=== PATIENT | male | born 1955 | race Caucasian/White ===

== ENCOUNTER 2017-09-07 10:52 | Outpatient (CLI) | payer OTHER ==
[~2017-09-07] VITALS: Ht 188 cm; Wt 126.4 kg
--- NOTE | ~2017-09-07 | HEMODYNAMI ---
PATIENT:RONNELL ANDERSON MEDICAL RECORD: [id number] : 57 LOCATION:[facility] ADMISSION DATE: 09/07/17 Generatedon:09/07/201713:18 Patient name: RONNELL ANDERSON Patient #: [id number] SSN: : 1955 Date of study: 09/07/2017 Page: Of Hemodynamic Procedure Report Patient Data Patient Demographics Procedure consent was obtained First Name: RONNELL Gender: Male Last Name: JUSTIN : 1955 Middle Initial: M Age: 62 year(s) Patient #: [id number] Race: Unknown Additional ID: [id number] Contact details [address]: [address] [place] [address] State: [place] City: [place] Zip code: [address] Past Medical History Allergies Allergen Reaction Date Comments Reported Penicillins 09/07/2017 Admission Admission Data Admission Date: 09/07/2017 Admission Time: 10:52 Height (in.): 6.2 BSA: 0.42 (m2) Height (cm.): 15.75 BMI: 5267.53 (kg/m2) Weight (lbs.): 288 Weight (kg.): 130.63 Lab Results Lab Result Date: 09/07/2017 Lab Result Time: 0:00 Biochemistry Name Units Result Min Max BUN mg/dl 20 --(----)*- 7 18 Creatinine mg/dl 1.1 --(--*-)-- 0.6 1.3 CBC Name Units Result Min Max Hemoglobin g/dl 14.8 --(-*--)-- 13.5 17.5 Procedure Procedure Types Cath Procedure Diagnostic Procedure Cardioversion External Procedure Description Procedure Date Procedure Date: 09/07/2017 Procedure Start Time: 13:06 Procedure End Time: 13:18 Procedure Staff Name Function Ady Sebastian MD Performing Physician Khadijah Causey RT Monitor Noah Mcgill RN Nurse Kiesha Metcalf CRNA Additional personnel Procedure Data Procedure Complications No complications Hemodynamics Rest BSA: 0.42 (m2) HGB: 14.8 (g/dl) O2 Consumption: Estimated: 50.57 (ml/min) O2 Consumption indexed: Estimated:120.4 (ml/min/m) Heart Rate: 78 (bpm) Snapshots Pre Cath Intra NCS Post Cath Vital Signs Time Heart Resp SPO2 etCO2 NIBP (mmHg) Rhythm Pain Sedation Rate (ipm) (%) (mmHg) Status Level (bpm) 12:56:17 64 4 99 0 No Cuff NSR 0 (11) 10(A) , No pain 13:01:02 68 11 99 19.3 144/92(113) NSR 0 (11) 10(A) , No pain 13:05:47 59 22 100 18.5 148/89(103) NSR 0 (11) 10(A) , No pain 13:10:46 58 10 95 0 Measuring NSR 0 (11) 10(A) , No pain 13:11:15 67 15 95 30.4 123/89(111) NSR 0 (11) 10(A) , No pain 13:16:14 60 5 99 32.6 Measuring NSR 0 (11) 10(A) , No pain 13:17:05 59 13 99 16.3 125/56(82) NSR 0 (11) 10(A) , No pain Procedure Log Time Note 12:38:48 Time tracking: Regular hours 12:38:52 Plan of Care:Hemodynamics will remain stable., Cardiac rhythm will remain stable., Comfort level will be maintained., Respiratory function will remain adequate., Patient/ family verbilizes understanding of procedure., Procedure tolerated without complication., Recovers from procedure without complications.. 12:38:55 Signed procedure consent form obtained from patient. 12:41:38 Patient Height : 6.2 inches 12:41:45 Patient Weight : 288 lbs 12:42:49 Patient allergic to Penicillins 12:43:16 Khadijah Causey RT(R) sent for patient. Start room use. 12:49:22 Patient received from Pre/Post Procedure Room to CCL 1 Alert and oriented. Tansferred to table in Supine position. 12:49:23 Warm blankets applied, and david hugger turned on for patient comfort. 12:49:24 Correct patient and procedure confirmed by team. 12:49:24 ECG and BP/O2 sat monitors applied to patient. 12:55:28 Vital chart was started 12:55:30 Baseline sample Acquired. 12:55:43 Rhythm: atrial fibrillation 12:55:44 Full Disclosure recording started 12:55:58 H&P Date Dictated: 09/01/2017 Within 30 days and on chart., H&P Addendum completed by physician on day of procedure. (MUST COMPLETE FOR ALL OUTPATIENTS). 12:55:59 Pre-procedure instructions explained to patient. 12:56:00 Pre-op teaching completed and patient verbalized understanding. 12:56:01 Family in patients room. 12:56:02 Patient NPO since Midnight. 12:56:05 Is the patient allergic to Iodine/contrast media? No. 12:56:08 Is patient on blood thinner?Yes 12:56:13 ACC The patient was administered the following blood thiners within the last 24 hours: Xarelto 12:56:15 Patient diabetic? Yes. 12:56:16 If diabetic: On Metformin? No 12:56:22 Previous problem with sedation/anesthesia? No ? 12:56:22 Snore? Yes 12:56:24 Sleep apnea? Yes 12:56:25 Deviated septum? No 12:56:28 Opens mouth fully? Yes 12:56:54 Sticks out tongue? Yes 12:56:57 Airway obstruction? No ? 12:57:00 Dentures? No ? 12:57:13 IV patent on arrival in left antecubital with 0.9% NaCl at [facility]. 12:59:26 Lab Result : BUN 20 mg/dl 12:59:26 Lab Result : Hemoglobin 14.8 g/dl 12:59:26 Lab Result : Creatinine 1.1 mg/dl 12:59:29 Lab results completed and on chart. 12:59:33 Alarms reviewed by R. N. 12:59:33 Sharps counted by scrub and verified by R.N. 13:03:37 Quick Combo opened to sterile field. 13:03:44 Kiesha Metcafl CRNA present and monitoring patient for TIVA. 13:05:57 --------ALL STOP TIME OUT------ 13:05:57 Final Timeout: patient, procedure, and site verified with staff and physician. All members of the team are in agreement. 13:06:02 Physical assessment completed. ASA score P 2 - A patient with mild systemic disease as per Ady Sebastian MD. 13:06:07 Sedation plan: TIVA Medication:Propofol 13:06:34 Procedure started. 13:06:41 Quick combo pads placed on patients chest and back. 13:08:27 Defibrillator synced and charged to 200 Joules. 13:09:12 Shock delivered. 13:09:38 Patient cardioverted to sinus rhythm . 13:09:45 Procedure ended.(Physican Out) 13:11:58 Post-procedure physical assessment completed. ASA score P 2 - A patient with mild systemic disease as per Ady Sebastian MD. 13:12:01 Post procedure rhythm: sinus rhythm 13:12:09 Post procedure instruction explained to patient.Patient verbalizes understanding. 13:12:09 Patient needs reinforcement of post procedure teaching. 13:12:58 Procedure and supply charges have been captured, reviewed, submitted and are correct. 13:13:00 Procedure Complication : No complications 13:18:02 Vital chart was stopped 13:18:02 See physician's report for complete and final results. 13:18:04 Report given to Pre/Post Procedure Room. 13:18:07 Patient transfered to Pre/Post Procedure Room with Bed. 13:18:09 Procedure ended. 13:18:09 Full Disclosure recording stopped 13:18:13 End room use (Document Last) Device Usage Item Manufacture Quantity Catalog Hospital Part Current Minimal Lot# / Name Number Charge Number Stock [facility] Ning ok# Code Guesty 1 [id number] Combo Signature Audit Monette Stage Time Signature Unsigned Intra-Procedure 09/07/2017 Khadijah Causey 1:18:45 PM RT(R) Signatures Monitor : Khadijah Causey Signature : RT Date : Time : [facility] [address] [place] [id number]
[2017-09-07] MEDS ORDERED: CRESTOR5 MG PO (11:22)
[2017-09-07] MEDS ORDERED: COZAAR25 MG PO (11:22)
[2017-09-07] MEDS ORDERED: BETAPACE 80 MG80 MG PO (11:23)
[2017-09-07] MEDS ORDERED: TRIAMTERENE-HCT1 TA1 PO (11:23)
[2017-09-07] MEDS ORDERED: XARELTO20 MG PO (11:24)
[2017-09-07 11:29] VITALS: BP 134/87; Ht 188 cm; Wt 126.4 kg
[2017-09-07 11:43] LABS: BASOPHILS 0.5 % (0-2); EOSINOPHILS 2.3 % (0-7); HEMATOCRIT 43.1 % (42.0-54.0); HEMOGLOBIN 14.8 g/dL (13.5-17.5); IMMATURE GRANULOCYTES 0.4 % (0-5); LYMPHOCYTES 26.5 % (15-50); MCH 29.1 pg (26.0-34.0); MCHC 34.3 g/dL (31.0-37.0); MCV 84.8 fL (80.0-100.0); MEAN PLATELET VOLUME 10.8 fL (7.4-10.4); MONOCYTES 8.9 % (2-11); NEUTROPHILS 61.4 % (40-80); PLATELET COUNT 228 10x3/uL (130-400); RBC 5.08 10x6/uL (4.20-6.10); RDW 13.7 % (11.5-14.5); WBC 9.2 10x3/uL (4.8-10.8)
[2017-09-07 11:58] LABS: INR 1.35 (0.85-1.17); PROTIME 16.2 SECONDS (11.6-15.0)
[2017-09-07 12:05] LABS: CALCIUM 8.7 mg/dL (8.5-10.1); CREATININE - SERUM 1.1 mg/dL (0.6-1.3)
== END 2017-09-07 14:45 | disposition home or self-care (01) ==
LOC: D.CATH 10:52
PROVIDERS: Internal Medicine Cardiovascular Disease
DX: I48.91 Unspecified atrial fibrillation (principal); I10 Essential (primary) hypertension; E11.9 Type 2 diabetes mellitus without complications; G47.30 Sleep apnea, unspecified; Z01.812 Encounter for preprocedural laboratory examination

== ENCOUNTER → 2018-10-25 11:27 | Outpatient (CLI) | payer OTHER ==
[2017-09-07 11:29] VITALS: BMI 35.7
[~2018-10-25 11:27] MED LIST: BETAPACE 80 MG80 MG PO; COZAAR25 MG PO; CRESTOR5 MG PO; TRIAMTERENE-HCT1 TA1 PO; XARELTO20 MG PO
== END | disposition home or self-care (01) ==
LOC: D.HCCARDIO 11:27
PROVIDERS: ATTEND Internal Medicine Cardiovascular Disease
DX: I10 Essential (primary) hypertension (principal)

== ENCOUNTER 2019-09-20 06:43 | Outpatient (CLI) | payer BC ==
[~2019-09-20] VITALS: Ht 188 cm; Wt 128.2 kg
--- NOTE | ~2019-09-20 | HEMODYNAMI ---
PATIENT:RONNELL ANDERSON MEDICAL RECORD: [id number] : 57 LOCATION:[facility] ADMISSION DATE: 09/20/19 Generatedon:09/20/20199:09 Patient name: RONNELL ANDERSON Patient #: [id number] SSN: [id number] : 1955 Date of study: 09/20/2019 Page: Of Hemodynamic Procedure Report Patient Data Patient Demographics Procedure consent was obtained First Name: RONNELL Gender: Male Last Name: JUSTIN : 1955 Middle Initial: M Age: 64 year(s) Patient #: [id number] Race: SSN: [id number] Additional ID: [id number] Contact details [address]: [address] [place] [address] State: [place] City: [place] Zip code: [address] Past Medical History Allergies Allergen Reaction Date Comments Reported Penicillins 09/07/2017 Other allergy 09/20/2019 PENICILLINS Admission Admission Data Admission Date: 09/20/2019 Admission Time: 6:43 Lab Results Lab Result Date: 09/20/2019 Lab Result Time: 0:00 Biochemistry Name Units Result Min Max BUN mg/dl 18 --(---*)-- 7 18 Creatinine mg/dl 0.9 --(-*--)-- 0.6 1.3 CBC Name Units Result Min Max Hematocrit % 42.8 --(*---)-- 42 54 Hemoglobin g/dl 14.2 --(*---)-- 13.5 17.5 Procedure Procedure Types Cath Procedure Diagnostic Procedure PPM/ICD PPM Dual Implant Sedation Charges Moderate Sedation up to 30 minutes Procedure Description Procedure Date Procedure Date: 09/20/2019 Procedure Start Time: 8:37 Procedure End Time: 9:07 Procedure Staff Name Function Prabhjot Ko MD Performing Physician Palmer Blackmon MD Assisting physician Marina Pride RT Monitor Sue Pagan RT Scrub Nicolle Pantoja RN Nurse Indication Paroxysmal atrial fibrillation Procedure Data Cath Procedure Fluoroscopy Diagnostic fluoroscopy Total fluoroscopy Time: 1.8 time: 1.8 min min Diagnostic fluoroscopy Total fluoroscopy dose: dose: 90.23 mGy 90.23 mGy Estimated blood loss: 10 ml Procedure Complications No complications Procedure Medications Medication Administration Route Dosage 0.9% NaCl I.V. 100 ml/hr Oxygen etCO2 Nasal cannula 2 l/min Lidocaine 1% added to field 20 Vancomycin I.V.P.B 1 g Vancomycin Topical 1 g Irrigation Versed I.V. 2 mg Fentanyl I.V. 50 mcg Versed I.V. 2 mg Fentanyl I.V. 50 mcg Fentanyl I.V. 50 mcg Hemodynamics Rest HGB: 14.2 (g/dl) Heart Rate: 60 (bpm) Snapshots Pre Cath Intra NCS Post Cath Vital Signs Time Heart Resp SPO2 etCO2 NIBP (mmHg) Rhythm Pain Sedation Rate (ipm) (%) (mmHg) Status Level (bpm) 8:10:45 50 18 98 33 147/82(128) A-Flutter 0 (11) 10(A) , No pain 8:15:01 65 16 98 28.6 157/89(121) A-Flutter 0 (11) 10(A) , No pain 8:19:11 61 12 98 33.9 143/92(114) A-Flutter 0 (11) 10(A) , No pain 8:23:27 60 11 96 40 148/82(134) A-Flutter 0 (11) 10(A) , No pain 8:27:41 69 19 98 28.6 143/92(123) A-Flutter 0 (11) 10(A) , No pain 8:31:55 61 14 97 42 146/87(116) A-Flutter 0 (11) 10(A) , No pain 8:36:15 45 16 96 38 136/74(125) A-Flutter 0 (11) 10(A) , No pain 8:40:27 60 24 96 38.5 141/86(131) A-Flutter 0 (11) 10(A) , No pain 8:44:43 49 14 98 35.4 125/82(110) A-Flutter 0 (11) 10(A) , No pain 8:48:53 58 16 98 31.7 132/79(105) A-Flutter 0 (11) 10(A) , No pain 8:53:05 46 15 96 31.7 133/79(119) A-Flutter 0 (11) 10(A) , No pain 8:57:15 69 18 97 36.2 137/87(111) Paced 0 (11) 10(A) , No pain 9:01:29 60 14 95 39.2 127/86(116) Paced 0 (11) 10(A) , No pain 9:05:38 62 9 96 35.4 137/83(103) Paced 0 (11) 10(A) , No pain Medications Time Medication Route Dose Verified Delivered Reason Notes Effectiv eness by by 8:18:20 0.9% NaCl I.V. 100 Prabhjot Nicolle used for ml/hr Stefani Kit procedure RN 8:18:27 Oxygen etCO2 2 Prabhjot Nicolle used for Nasal l/min StefaniEber Pantoja procedure cannula MD FLOYD 8:18:39 Lidocaine added 20ml Palmer Babbian for local 1% to vial Flaquito Blackmon MD anesthetic field x 2 8:18:46 Vancomycin I.V.P.B 1 g Sabianism Sabianism used for Flaquito Blackmon MD procedure 8:18:55 Vancomycin Topical 1 g Sabianism Sabianism used for Irrigation Flaquito Blackmon MD procedure 8:33:00 Versed I.V. 2 mg Prabhjot Nicolle for StefaniEber Pantoja sedation RN 8:33:12 Fentanyl I.V. [address] Nicolle for mcg [address] Eber Pantoja sedation RN 8:38:39 Versed I.V. 2 mg Prabhjot Nicolle for StefaniEber Pantoja sedation RN 8:38:45 Fentanyl I.V. 50 Prabhjot Nicolle for mcg StefaniEber Pantoja sedation RN 8:45:03 Fentanyl I.V. 50 Prabhjot Nicolle for mcg StefaniEber Pantoja sedation supervisor stave finishing Log Time Note 7:55:45 Informed consent obtained and on chart 7:57:24 Indication : Paroxysmal atrial fibrillation 7:57:50 Procedure Status PPM/ Gen Change/ Lead Revision/ Temp. 7:57:55 Sue NOLAND(R) sent for patient. Start room use. 7:57:58 Time tracking: Regular hours (M-F 7:00 - 5:00) 7:58:07 Plan of Care:Hemodynamics will remain stable., Cardiac rhythm will remain stable., Comfort level will be maintained., Respiratory function will remain adequate., Patient/ family verbilizes understanding of procedure., Procedure tolerated without complication., Recovers from procedure without complications.. 8:01:32 Patient allergic to Other allergyPENICILLINS 8:01:53 Patient received from Pre/Post Procedure Room to CCL 3 Alert and oriented. Tansferred to table in Supine position. 8:02:29 Lab Result : Hemoglobin 14.2 g/dl 8:: Lab Result : Hematocrit 42.8 % 8:: Lab Result : BUN 18 mg/dl 8:: Lab Result : Creatinine 0.9 mg/dl 8:02:33 Warm blankets applied, and david hugger turned on for patient comfort. 8:02:34 Correct patient and procedure confirmed by team. 8:02:35 ECG and BP/O2 sat monitors applied to patient. 8:08:08 H&P Date Dictated: 09/20/2019 H&P Addendum completed by physician on day of procedure. (MUST COMPLETE FOR ALL OUTPATIENTS), New H&P dictated by physician.. 8:08:10 Pre-procedure instructions explained to patient. 8:08:11 Pre-op teaching completed and patient verbalized understanding. 8:08:14 Family unavailable. 8:08:17 Patient NPO since Midnight. 8:08:20 Is the patient allergic to Iodine/contrast media? No. 8:08:23 Was the patient premedicated? Yes 8:08:50 Is patient on blood thinner?Yes 8:08:56 ACC The patient was administered the following blood thiners within the last 24 hours: Xarelto 8:09:30 LAST ZARELTO 09-18-2019. 8:09:35 Patient diabetic? Yes. 8:09:37 If diabetic: On Metformin? No 8:09:43 Vital chart was started 8:09:46 Baseline sample Acquired. 8:10:19 Rhythm: atrial fibrillation 8:10:22 Full Disclosure recording started 8:10:22 8:10:30 ----Pre-sedation anethsthesia assessment.---- 8:10:34 Previous problem with sedation/anesthesia? No ? 8:10:36 Snore? Yes 8:10:39 Sleep apnea? Yes 8:10:42 Deviated septum? No 8:10:45 Opens mouth fully? Yes 8:10:47 Sticks out tongue? Yes 8:11:04 Airway obstruction? Yes SLEEP APNEA/WEARS CPAP 8:11:09 Dentures? No ? 8:11:27 IV patent on arrival in left forearm with 0.9% NaCl at [facility]. 8:11:34 Lab results completed and on chart. 8:11:48 Left chest area was prepped with chlora-prep and draped in sterile fashion 8:11:51 Alarms reviewed by R. N. 8:11:52 Sharps counted by scrub and verified by R.N. 8:12:07 Use device set FLAQUITO PPM 8:12:10 2-0 Ticron Multipack ([id number]) opened to sterile field. 8:12:10 3-0 Vicryl Single Pack [id number] opened to sterile field. 8:12:11 5-0 Monocryl PS2 [id number] opened to sterile field. 8:12:12 Cautery Tip Business Operations Manager opened to sterile field. 8:12:13 Cautery Pushbutton Pencil opened to sterile field. 8:12:14 Mepilex Dressing ([id number]) opened to sterile field. 8:12:40 Medtronic sales representative girls' apparel LEIGH ANN LOPEZ present for procedure. 8:13:08 Pre sharps counted by scrub and verified by RN: Sutures: 7; Sponges: 5; Stick needles: 2; Skin needles: 2; Blade: 1; Cautery: 1 8:13:20 Grounding pad site Left thigh. 8:13:21 Grounding pad site free from injury. 8:18:20 0.9% NaCl 100 ml/hr I.V. was administered by Nicolle Pantoja RN; used for procedure; Verbal order read back and verified. 8:18:27 Oxygen 2 l/min etCO2 Nasal cannula was administered by Nicolle Pantoja RN; used for procedure; Verbal order read back and verified. 8:18:39 Lidocaine 1% 20ml vial x 2 added to field was administered by Palmer Blackmon MD; for local anesthetic; Verbal order read back and verified. 8:18:46 Vancomycin 1 g I.V.P.B was administered by Palmer Blackmon MD; used for procedure; Verbal order read back and verified. 8:18:55 Vancomycin Irrigation 1 g Topical was administered by Palmer Blackmon MD; used for procedure; Verbal order read back and verified. 8:23:21 MARINA SPOKE TO , KRISTIN. PROCEDURE STARTING. 8:30:59 Immobilizer Extra Large opened to sterile field. 8:31:04 Medtronic 4074-58 PPM Lead opened to sterile field. 8:31:05 Medtronic 4574-53 PPM Lead opened to sterile field. 8:31:[address] Generator [id number] opened to sterile field. 8:31:21 Physician paged 8:32:23 Physician arrived 8:32:24 --------ALL STOP TIME OUT------ 8:32:25 Final Timeout: patient, procedure, and site verified with staff and physician. All members of the team are in agreement. 8:32:31 Left chest site verified by team. 8:32:57 Fire Safety Assessment: A--An alcohol-based skin anteseptic being used preoperatively., B--The operative or invasive procedure is being performed above the xiphoid process or in the oropharynx., C--Open oxygen or nitrous oxide is being used., E--There are other possible contributors. 8:33:00 Versed 2 mg I.V. was administered by Nicolle Pantoja RN; for sedation; Verbal order read back and verified. 8:33:06 Physical assessment completed. ASA score P 2 - A patient with mild systemic disease as per Prabhjot Ko MD. 8:33:12 Fentanyl 50 mcg I.V. was administered by Nicolle Pantoja RN; for sedation; Verbal order read back and verified. 8:33:14 Sedation plan: IV Moderate Sedation Medication:Versed, Fentanyl 8:36:54 Procedure started. 8:37:01 Lidocaine 1% was administered to left subclavicular area by Palmer Blackmon MD . 8:38:39 Versed 2 mg I.V. was administered by Nicolle Kit RN; for sedation; Verbal order read back and verified. 8:38:45 Fentanyl 50 mcg I.V. was administered by Nicolle Pantoja RN; for sedation; Verbal order read back and verified. 8:39:18 Incision made to left subclavicular area. 8:41:38 Generator pocket made. 8:45:03 Fentanyl 50 mcg I.V. was administered by Nicolle Pantoja RN; for sedation; Verbal order read back and verified. 8:45:37 Left subclavian vein accessed with 7Fr Peel Away Sheath. 8:45:42 Left subclavian vein accessed with 7Fr Peel Away Sheath. 8:46:40 Ventricular lead inserted and advanced. 8:46:45 Atrial lead inserted and advanced. 8:48:47 Ventricular lead positioned. 8:50:53 Ventricular lead tested. 8:50:54 Atrial lead positioned. 8:51:04 Atrial lead tested. 8:52:19 Peel-a-way sheath was split and removed. 8:52:22 Peel-a-way sheath was split and removed. 8:53:38 PPM Dual was attached to lead(s) and inserted into pocket. 8:53:50 PPM Dual was inserted subcutaneously to left chest. 8:55:22 Device pocket was irrigated with Vancomycin. 8:57:28 Atrial lead attachment was completed with 2-0 ticron. 8:57:36 Ventricular lead attachment was completed with 2-0 ticron. 8:59:07 Generator was sutured in place with 2-0 ticron. 8:59:19 Subcutaneous closure was completed with 3-0 vicryl plus. 8:59:54 Parameters-- Generator: Mode: DDDR. Lower Rate: 60bpm. Upper Rate: 130bpm. 9:00:52 Parameters--Atrial P/R Wave: 1.1mV. Current: afmA; Threshold: ?V; Impedence: 513OHMS. 9:02:15 Skin closure was completed with 5-0 monocryl. 9:02:26 Lt Chest incision was dressed with Mepilex dressing. 9:02:33 Procedure ended.(Physican Out) 9:03:36 Parameters--Ventricular P/R Wave: 8.5mV. Current: 0.1mA; Threshold: 0.3V; Impedence: 1360OHMS. 9:04:24 Fluoroscopy time 01.80 minutes. 9:04:33 Fluoroscopy dose: 90.23 mGy 9:04:33 Flurop Dose total: 90.23 9:04:42 Dose Area Product 1214.10 mGy/cm. 9:04:47 Sharps counted by scrub and verified by R.N. 9:05:30 Post sharps counted by scrub and verified by RN: Sutures: 7; Sponges: 5; Stick needles: 2; Skin needles: 2; Blade: 1; Cautery: 1 9:05:45 Insertion/operative site no bleeding no hematoma. 9:05:55 Post Chest area:stable 9:06:02 Post-procedure physical assessment completed. ASA score P 2 - A patient with mild systemic disease as per Prabhjot Ko MD. 9:06:07 Post procedure rhythm: paced 9:06:11 Estimated blood loss: 10 ml 9:06:13 Post procedure instruction explained to patient.Patient verbalizes understanding. 9:06:14 Patient needs reinforcement of post procedure teaching. 9:06:24 Procedure type changed to Cath procedure, Diagnostic procedure, PPM/ICD, PPM Dual Implant, Sedation Charges, Moderate Sedation up to 30 minutes 9:06:28 Procedure and supply charges have been captured, reviewed, submitted and are correct. 9:07:09 Procedure Complication : No complications 9:07:13 Vital chart was stopped 9:07:18 Operative report dictated upon procedure completion. 9:07:19 See physician's report for complete and final results. 9:07:21 Report given to Pre/Post Procedure Room. 9:07:25 Patient transfered to Pre/Post Procedure Room with Stretcher. 9:07:28 Procedure ended. 9:07:28 Full Disclosure recording stopped 9:07:31 End room use (Document Last) Device Usage Item Name Manufacture Quantity Catalog Hospital Part Current Minima l Lot# / Number Charge Number Stock Stock Serial# Code 2-0 Ticron Ethicon 8 [id number] 5 Multipack ([id number]) 3-0 Vicryl Ethicon 1 [id number] 081222 847845 [id number] 5 Single Pack [id number] 5-0 Monocryl Ethicon 1 [id number] 047006 680177 817328 5 PS2 Y495G Cautery Tip Microtek 1 [id number] 152651 577866 5 Business Operations Manager [employer] Cautery Microtek 1 [id number] 693978 29877 [id number] 5 Pushbutton [employer] Inc[employer] Pencil Mepilex Cardinal 1 976238 811840 [id number] [id number] 5 Dressing Health ([id number]) Medtronic Medtronic 1 4074-58 218070 659038 442010 5 [id number] 4074-58 PPM 06-08-2021 Lead Medtronic Medtronic 1 4574-53 459638 [id number] [id number] 5 [id number] 4574-53 PPM 07-06-2021 Lead Medtronic Medtronic 1 [id number] [id number] 5 [id number] ALEKSNADAR XT 01-18-2021 Generator [id number] Immobilizer Cardinal 1 [id number] [id number] [id number] 043521 5 Extra Large Health Signature Audit [place] Stage Time Signature Unsigned Intra-Procedure 09/20/2019 Marina 9:07:52 AM Shannen RT(R) (CV) Intra-Procedure 09/20/2019 Nicolle Pantoja 9:08:35 AM RN Intra-Procedure 09/20/2019 Prabhjot Winter 9:09:00 AM Eber [address]IGUEZ [address] [place] [address]
[2019-09-20] MEDS ORDERED: LEVEMIR IN100 UNITS/ SC (06:59)
[2019-09-20] MEDS ORDERED: XARELTO20 MG PO (06:59)
[2019-09-20] MEDS ORDERED: HUMALOG 30100 UNITS/ SC (06:59)
[2019-09-20] MEDS ORDERED: CRESTOR5 MG PO (07:00)
[2019-09-20 07:20] VITALS: BP 144/78; Ht 188 cm; Wt 128.2 kg
[2019-09-20 07:21] LABS: HEMATOCRIT 42.8 % (42.0-54.0); HEMOGLOBIN 14.2 g/dL (13.5-17.5); MCH 28.6 pg (26.0-34.0); MCHC 33.2 g/dL (31.0-37.0); MCV 86.3 fL (80.0-100.0); RBC 4.96 10x6/uL (4.20-6.10); RDW 13.9 % (11.5-14.5); WBC 7.9 10x3/uL (4.8-10.8)
[2019-09-20 07:34] LABS: CALC OSMOLALITY 285 mosm/kg (275-300); CALCIUM 8.8 mg/dL (8.5-10.1); CARBON DIOXIDE 24.2 mmol/L (21.0-32.0); CHLORIDE - SERUM 105 mmol/L (98-107); CREATININE - SERUM 0.9 mg/dL (0.6-1.3); POTASSIUM - SERUM 3.6 mmol/L (3.5-5.1); SODIUM 140 mmol/L (136-145); UREA NITROGEN 18 mg/dL (7-18); eGFR NON AFRICAN AMERICAN > 90 mL/min (90-120)
[2019-09-20 07:35] LABS: GLUCOSE 181 mg/dL (74-106); INR 1.06 (0.85-1.17); PROTIME 13.8 SECONDS (11.6-15.0)
--- NOTE | 2019-09-20 09:24 | NUR ---
PT ARRIVED BY STRETCHER. PLACED ON MONITORS. ASSESSMENT COMPLETED. LEFT ARM IN SLING. CALL LIGHT WITHIN REACH.
[2019-09-20] MEDS ORDERED: HYDROCODON-ACE1 EAC7 PO (09:36)
--- NOTE | 2019-09-20 09:40 | NUR ---
LEFT UPPER CHEST DRESSING C/D/I. NO S/S OF HEMATOMA NOTED. VSS. PT RESTING COMFORTABLY AT THIS TIME.
--- NOTE | 2019-09-20 09:48 | NUR ---
X RAY AT BEDSIDE FOR CXR
--- NOTE | 2019-09-20 10:00 | NUR ---
CALLED PT'S AND UPDATED HER ON PT'S STATUS. DISCUSSED DISCHARGE INSTRUCTIONS WITH PT'S . SHE VOICED UNDERSTANDING.
--- NOTE | 2019-09-20 10:30 | NUR ---
LEFT UPPER CHEST DRESSING C/D/I. NO S/S OF HEMATOMA NOTED. PIV D/C'D WITH CATH TIP INTACT. TOLERATED WELL. PT INSTRUCTED TO GET UP AND DRESSED AT THIS TIME. NO ASSISTANCE NEEDED. CALL LIGHT WITHIN REACH.
--- NOTE | 2019-09-20 10:55 | NUR ---
PT DRESSED. LEFT ARM IN SLING. DISCUSSED DISCHARGE INSTRUCTIONS WITH PT. HE VOICED UNDERSTANDING. PT'S CALLED AND WILL MEET US DOWNSTAIRS FOR HELP DESK ASSOCIATE.
--- NOTE | 2019-09-20 11:00 | NUR ---
PT TAKEN DOWN TO VEHICLE BY WHEELCHAIR. NO S/S OF DISTRESS NOTED. ALL BELONGINGS AND PAPERWORK IN HAND.
--- NOTE | 2019-09-21 08:47 | OP ---
PATIENT NAME: MAGED GONZALEZ MEDICAL RECORD: [id number] :57 LOCATION:D.CAT ADMISSION DATE: SURGEON: ANA LAURA MCCORMICK MD DATE OF OPERATION: 09/20/2019 PROCEDURE: Lead portion of permanent pacer placement. SURGEON: Palmer Blackmon MD INDICATION: Sick sinus syndrome with pauses. DESCRIPTION OF PROCEDURE: After left subclavian was cannulated via modified Seldinger technique via Dr. Blackmon, first under fluoroscopic guidance, I placed RV lead in the RV apex without difficulty. After adequate R waves and thresholds were obtained, we then placed the right atrial lead in the right atrial appendage without difficulty. After adequate fibrillatory waves and resistance was confirmed, impedance was confirmed, we attached the leads to appropriate poles on the generator and the pocket was closed via Dr. Blackmon. IMPRESSION: Successful lead portion of permanent pacemaker placement for Maged Gonzalez. COMPLICATIONS: None. ESTIMATED BLOOD LOSS: Minimal. DISPOSITION: To the floor, stable. TRANSINT:[id number] Voice Confirmation ID: [id number] DOCUMENT ID: [id number] ANA LAURA MCCORMICK MD at 0847 CC: [id number] DICTATION DATE: 09/20/19 0905 SANITATION OFFICER: 09/20/19 1120 DEP CLI 09/20/19 [address] [place] [address]
--- NOTE | 2019-09-22 13:30 | OP ---
PATIENT NAME: RONNELL ANDERSON MEDICAL RECORD: [id number] :57 LOCATION:D.CAT ADMISSION DATE: SURGEON: HEMANT HUDDLESTON MD DATE OF OPERATION: 09/20/2019 PREOPERATIVE DIAGNOSES: 1. Sick sinus syndrome with pauses. 2. Atrial fibrillation. POSTOPERATIVE DIAGNOSES: 1. Sick sinus syndrome with pauses. 2. Atrial fibrillation. PROCEDURE: 1. Left subclavian vein dual lead pacemaker placement. 2. Fluoroscopic interpretation. SURGEON: Hemant Huddleston MD REPORT OF PROCEDURE: The patient's left chest was prepped and draped in sterile fashion. A 25 mL of 1% lidocaine with epinephrine was infused into the surrounding tissues. A transverse incision was made in the left superior lateral chest and a subcutaneous pouch was made over the pectoral fascia. A needle was used to cannulate the left subclavian vein times 2 and guidewires were advanced with ease. Fluoro was used to note that the wires were in good position in the venous system. Dilator trocar devices were placed over the wires and the wires and dilators were removed. The leads were advanced through the trocars until they rested in the superior vena cava. At this point, Dr. Rai, positioned the leads appropriately in the atrium and ventricle. Once the leads were noted to be in good position and functioning appropriately, then these were sutured into place with 2-0 TiCron. The leads were affixed to the pacemaker, which was placed into the subcutaneous pouch. We sutured the pacemaker to the pectoral fascia with a single interrupted 2-0 TiCron. We irrigated out the wound bed with antibiotic solution. The subcutaneous tissues were reapproximated with interrupted 3-0 Vicryl and the skin was closed with running subcutaneous 5-0 Monocryl. COMPLICATIONS: None. CONDITION: Stable. ANESTHESIA: Local MAC. BLOOD LOSS: Minimal. TRANSINT:[id number] Voice Confirmation ID: [id number] DOCUMENT ID: [id number] OPERATIVE REPORT [id number] JUSTINORNNELL HEMANT HUDDLESTON MD at 1330 CC: [id number] DICTATION DATE: 09/20/19 09 THEATRICAL TROUPER: 09/20/19 1051 DEP CLI 09/20/19 [id number] [place] [address]
== END 2019-09-20 11:00 | disposition home or self-care (01) ==
LOC: D.CATH 06:43
PROVIDERS: ATTEND Internal Medicine Interventional Cardiology
DX: I49.5 Sick sinus syndrome (principal); I48.0 Paroxysmal atrial fibrillation; Z86.73 Personal history of transient ischemic attack (TIA), and cerebral infarction without residual deficits; I10 Essential (primary) hypertension

== ENCOUNTER 2019-11-13 11:39 | Outpatient (CLI) | payer BC ==
[~2019-11-13] VITALS: Ht 188 cm; Wt 133.6 kg
--- NOTE | ~2019-11-13 | HEMODYNAMI ---
PATIENT:RONNELL ANDERSON MEDICAL RECORD: [id number] : 57 LOCATION:[facility] ADMISSION DATE: 11/13/19 Generatedon:11/13/201913:23 Patient name: RONNELL ANDERSON Patient #: [id number] SSN: [id number] : 1955 Date of study: 11/13/2019 Page: Of Hemodynamic Procedure Report Patient Data Patient Demographics Procedure consent was obtained First Name: RONNELL Gender: Male Last Name: JUSTIN : 1955 Middle Initial: M Age: 64 year(s) Patient #: [id number] Race: SSN: [id number] Additional ID: [id number] Contact details [address]: [address] [place] [address] State: [place] City: [place] Zip code: [address] Past Medical History Allergies Allergen Reaction Date Comments Reported Penicillins 09/07/2017 Other allergy 09/20/2019 PENICILLINS Other allergy 11/13/2019 PCN Admission Admission Data Admission Date: 11/13/2019 Admission Time: 11:39 Arrival Date: 11/13/2019 Arrival Time: 13:00 Admit Source: Other Insurance Payor: Private health insurance [facility] #: [id number] Lab Results Lab Result Date: 11/13/2019 Lab Result Time: 0:00 Biochemistry Name Units Result Min Max BUN mg/dl 15 --(--*-)-- 7 18 Creatinine mg/dl 1 --(--*-)-- 0.6 1.3 Procedure Procedure Types Cath Procedure Diagnostic Procedure Cardioversion External Procedure Description Procedure Date Procedure Date: 11/13/2019 Procedure Start Time: 13:13 Procedure End Time: 13:18 Procedure Staff Name Function Ady Sebastian MD Performing Physician Jesika Todd RT Monitor Linnea Martinez RN Nurse Sarabjit Butterfield MD Additional personnel Procedure Data Cath Procedure Estimated blood loss: 5 ml Procedure Complications No complications Procedure Medications Medication Administration Route Dosage Oxygen etCO2 Nasal cannula 2 l/min Refer to Anesthesia Notes for Sedation Medications Hemodynamics Rest Pre Cath Intra NCS Post Cath Vital Signs Time Heart Resp SPO2 etCO2 NIBP (mmHg) Rhythm Pain Sedation Rate (ipm) (%) (mmHg) Status Level (bpm) 13:09:24 65 15 99 34 155/92(110) A-Fib 0 (11) 10(A) , No pain 13:14:46 80 14 93 22.9 141/100(121) A-Fib 0 (11) 9(A) , No pain 13:17:48 80 18 97 0 149/91(122) Paced 0 (11) 9(A) , No pain 13:20:01 60 15 96 0 147/86(118) Paced 0 (11) 10(A) , No pain Medications Time Medication Route Dose Verified Delivered Reason Notes Effective ness by by 13:11:25 Oxygen etCO2 2 Day Tammyie used for Nasal l/min Romulo Martinez body builder cannula 13:11:31 Refer to Ady Linnea Anesthesia Romulo Martinez RN Notes for Sedation Medications Procedure Log Time Note 12:56:17 Diagnostic Cath Status : Elective 12:58:06 Admit Source: Other 12:58:09 Arrival Date: 11/13/2019 1:00:00 PM 12:58:47 Insurance Payor : Private health insurance 12:59:54 Procedure Status Cardioversion. 12:59:56 Linnea Martinez RN sent for patient. Start room use. 12:59:56 Time tracking: Regular hours (M-F 7:00 - 5:00) 13:00:02 Plan of Care:Hemodynamics will remain stable., Cardiac rhythm will remain stable., Comfort level will be maintained., Respiratory function will remain adequate., Patient/ family verbilizes understanding of procedure., Procedure tolerated without complication., Recovers from procedure without complications.. 13:01:59 Patient received from Pre/Post Procedure Room to CCL 1 Alert and oriented. Tansferred to table in Supine position. 13:02:01 Signed procedure consent form obtained from patient. 13:02:02 Warm blankets applied, and david hugger turned on for patient comfort. 13:02:03 Correct patient and procedure confirmed by team. 13:02:04 ECG and BP/O2 sat monitors applied to patient. 13:03:00 H&P Date Dictated: 10/23/2019 Within 30 days and on chart.. 13:03:02 Pre-op teaching completed and patient verbalized understanding. 13:03:03 Pre-procedure instructions explained to patient. 13:03:05 Family in waiting room. 13:03:07 Patient NPO since Midnight. 13:03:26 Patient allergic to Other allergyPCN 13:03:30 Is the patient allergic to Iodine/contrast media? No. 13:03:32 Was the patient premedicated? No 13:03:38 Alarms reviewed by R. N. 13:03:39 Sharps counted by scrub and verified by R.N. 13:04:07 Is patient on blood thinner?Yes 13:04:10 Patient diabetic? Yes. 13:04:42 Sarabjit Butterfield MD present and monitoring patient for TIVA. 13:04:49 ----Pre-sedation anethsthesia assessment.---- 13:04:54 Previous problem with sedation/anesthesia? No ? 13:04:56 Snore? Yes 13:04:57 Sleep apnea? Yes 13:04:58 Deviated septum? No 13:04:59 Opens mouth fully? Yes 13:05:01 Sticks out tongue? Yes 13:05:03 Airway obstruction? No ? 13:05:05 Dentures? No ? 13:05:19 IV patent on arrival in left antecubital with 0.9% NaCl at [facility]. 13:07:52 Vital chart was started 13:08:20 If diabetic: On Metformin? No 13:08:26 ACC The patient was administered the following blood thiners within the last 24 hours: Xarelto 13:08:35 Patient pain scale 0/10 ?. 13:08:45 Lab results completed and on chart. 13:08:53 Physician arrived 13:08:54 --------ALL STOP TIME OUT------ 13:08:54 Final Timeout: patient, procedure, and site verified with staff and physician. All members of the team are in agreement. 13:09:06 Fire Safety Assessment: C--Open oxygen or nitrous oxide is being used., E--There are other possible contributors. 13:09:09 Physical assessment completed. ASA score P 2 - A patient with mild systemic disease as per Ady Sebastian MD. 13:09:15 Sedation plan: TIVA Medication:Propofol 13:09:34 Quick Combo opened to sterile field. 13:11:25 Oxygen 2 l/min etCO2 Nasal cannula was administered by Linnea Martinez RN; used for procedure; Verbal order read back and verified. 13:11:31 Refer to Anesthesia Notes for Sedation Medications was administered by Linnea Martinez RN; ; Verbal order read back and verified. 13:12:03 Lab Result : Creatinine 1 mg/dl 13:12:03 Lab Result : BUN 15 mg/dl 13:12:33 Sarabjit Butterfield MD present and monitoring patient for TIVA. 13:12:40 Quick combo pads placed on patients chest and back. 13:12:43 Defibrillator synced and charged to 200 Joules. 13:13:35 Procedure started. 13:13:35 Full Disclosure recording started 13:13:40 Shock delivered. 13:13:55 Patient cardioverted to sinus rhythm . 13:15:06 Procedure ended.(Physican Out) 13:16:06 Post procedure rhythm: sinus tachycardia 13:16:15 Estimated blood loss: 5 ml 13:16:18 Post procedure instruction explained to patient.Patient verbalizes understanding. 13:16:19 Patient needs reinforcement of post procedure teaching. 13:18:25 Procedure and supply charges have been captured, reviewed, submitted and are correct. 13:18:30 Procedure Complication : No complications 13:18:33 Vital chart was stopped 13:18:37 Operative report dictated upon procedure completion. 13:18:39 See physician's report for complete and final results. 13:18:41 Report given to Pre/Post Procedure Room. 13:18:44 Procedure ended. 13:18:44 Full Disclosure recording stopped 13:18:53 End room use (Document Last) Device Usage Item Manufacture Quantity Catalog Hospital Part Current Minimal Lot# / Name Number Charge Number Stock Stock Ning ca# Code [employer] 1 [id number] Combo Signature Audit [place] Stage Time Signature Unsigned Intra-Procedure 11/13/2019 Jesika Todd 1:22:23 PM RT(R) Intra-Procedure 11/13/2019 Linnea Martinez RN 1:23:20 PM Intra-Procedure 11/13/2019 Ady Sebastian MD 1:23:[address] [place] [address]
[~2019-11-13 11:39] MED LIST changes: +HUMALOG 30100 UNITS/ SC; +HYDROCODON-ACE1 EAC7 PO; +LEVEMIR IN100 UNITS/ SC
[2019-11-13 12:47] VITALS: BP 153/88; Ht 188 cm; Wt 133.6 kg
[2019-11-13 12:55] LABS: BASOPHILS 0.7 % (0-2); EOSINOPHILS 2.4 % (0-7); HEMATOCRIT 44.4 % (42.0-54.0); HEMOGLOBIN 14.6 g/dL (13.5-17.5); IMMATURE GRANULOCYTES 0.2 % (0-5); LYMPHOCYTES 23.5 % (15-50); MCH 28.1 pg (26.0-34.0); MCHC 32.9 g/dL (31.0-37.0); MCV 85.5 fL (80.0-100.0); MONOCYTES 8.1 % (2-11); NEUTROPHILS 65.1 % (40-80); PLATELET COUNT 249 10x3/uL (130-400); RBC 5.19 10x6/uL (4.20-6.10); RDW 14.4 % (11.5-14.5); WBC 8.6 10x3/uL (4.8-10.8)
[2019-11-13 13:03] LABS: CALC OSMOLALITY 280 mosm/kg (275-300); CALCIUM 8.9 mg/dL (8.5-10.1); CARBON DIOXIDE 27.8 mmol/L (21.0-32.0); CHLORIDE - SERUM 102 mmol/L (98-107); GLUCOSE 209 mg/dL (74-106); INR 1.72 (0.85-1.17); POTASSIUM - SERUM 4.1 mmol/L (3.5-5.1); SODIUM 137 mmol/L (136-145); UREA NITROGEN 15 mg/dL (7-18); eGFR NON AFRICAN AMERICAN 80 mL/min (90-120)
--- NOTE | 2019-11-13 13:30 | NUR ---
PT RECEIVED BACK TO ROOM FOR RECOVERY AFTER SUCCESSFUL CARDIOVERSION. PT AWAKE AND ALERT, DENIES PAIN OR DISCOMFORT. IV PATENT INFUSING VIA R ARM PER ORDERS. PT PLACED ON CARDIAC MONITORS, HR PACED AT 60, BP 124/74, RR 13, SAT 94 ON ROOM AIR. SMALL RED AREA UP MIDDLE UPPER CHEST FROM PROCEDURE. CALL LIGHT IN REACH, PT DENIES NEEDS
[2019-11-13] MEDS ORDERED: BETAPACE 80 MG80 MG PO (13:35)
--- NOTE | 2019-11-13 13:45 | NUR ---
PT SITTING UP IN BED, DENIES PAIN OR DISCOMORT. HR PACED IN REG RHYTHM AT 60. VSS. CALL LIGHT IN REACH
--- NOTE | 2019-11-13 14:15 | NUR ---
PT DOING WELL, TOLERATING PO FLUIDS. HR REMAINS PACED, 60. BP 152/80. DISCHARGE INSTRUCTIONS REVIEWED W PT, HE VERBALIZED UNDERSTANDING. MONITORS REMOVED, PT UP TO DRESS FOR DISCHARGE
--- NOTE | 2019-11-13 14:27 | NUR ---
PT DISCHARGED VIA WC TO WAITING IN PRIVATE VEHICLE. PT HAD ALL BELONGINGS AND DISCHARGE PAPERWORK IN HAND.
== END 2019-11-13 14:30 | disposition home or self-care (01) ==
LOC: D.CATH 11:39
PROVIDERS: ATTEND Internal Medicine Cardiovascular Disease
DX: I48.0 Paroxysmal atrial fibrillation (principal); Z86.73 Personal history of transient ischemic attack (TIA), and cerebral infarction without residual deficits; Z95.0 Presence of cardiac pacemaker